=== PATIENT | female | born 1965 ===

== ENCOUNTER 2017-01-14 09:06 | Day surgery (SDC) | payer MEDICAID ==
[2017-01-14] MEDS ORDERED: Propofol 10 mg/ml Inj (20 ML) ONE (12:20)
[2017-01-14 12:26] VITALS: O2SAT 100
[2017-01-14] MEDS ORDERED: Simethicone 40 mg/0.6 ml Liquid (30 ml) ONE (12:29)
[2017-01-14 12:58] VITALS: TEMP 97.7
[2017-01-14 13:28] VITALS: RESP 14
[2017-01-14 13:31] VITALS: BP 110/70; PULSE 67
== END 2017-01-14 14:00 | disposition home or self-care (01) ==
LOC: C.ENDO 09:06
PROVIDERS: ATTEND Internal Medicine
DX: Z12.11 Encounter for screening for malignant neoplasm of colon (principal); K64.8 Other hemorrhoids
CPT/HCPCS: 45378; J2001; J2704